=== PATIENT | female | born 1970 | race Caucasian/White ===

== ENCOUNTER 2021-07-27 09:28 | Emergency (ER) | payer OTHER ==
[2021-07-27 10:03] LABS: Appearance CLOUDY (CLEAR); Bacteria RARE /HPF (NEGATIVE); Bilirubin NEGATIVE (NEGATIVE); Blood LARGE Ery/ul (0-5); Epithelial Cells RARE /HPF (FEW); Glucose NEGATIVE (NEGATIVE); Ketones NEGATIVE (NEGATIVE); Leukocyte Esterase LARGE (NEGATIVE); Nitrite NEGATIVE (NEGATIVE); Non-Squamous Epithelial Cells RARE /HPF (FEW); Protein,Urine Dip >=500 (Negative); Specific Gravity 1.022 (1.005-1.025); Urobilinogen NEGATIVE mg/dL (0-1); WBC >100 /HPF (0-5)
[2021-07-27] MEDS ORDERED: KEFLEX 500 MG PO ONE (10:04)
[2021-07-27 10:06] LABS: RBC >101 /HPF (0-2)
[2021-07-27] MEDS ORDERED: KEFLEX 500 MG ONE (10:10)
--- NOTE | 2021-07-27 10:23 | ERPHSYRPT ---
- History of Present Illness Time Seen by Provider: 07/27/21 10:03 Source: patient Exam Limitations: no limitations Patient Subjective Stated Complaint: pt reports UTI, states she has a history, symptoms started yesterday with urgency, pain with urination, frequency and bl ush colored urine. Triage Nursing Assessment: pt is aox3, pupils perrl, afebrile, resps easy and non labored, cap refill < 3 seconds, radial pulses strong and equal, pt skin p ink warm dry. Physician History: 51 years old female with history of UTIs in the past presented in the ER with suprapubic discomfort, with increased frequency, dysuria and sense of incomplete voiding and questionable hematuria since yesterday. Patient reports symptoms similar to last time when she had a UTI. No fever or chills reported. Denies any flank pain. No nausea or vomiting. Timing/Duration: yesterday, gradual onset, worse Quality: aching Onset Location: urethral Severity of Pain-Max: moderate Severity of Pain-Current: mild Prior abdominal problems: UTI Modifying Factors: Worsens With: urinating Associated Symptoms: dysuria, nocturia, urinary frequency Allergies/Adverse Reactions: Sulfa (Sulfonamide Antibiotics) Allergy (Verified 07/27/21 09:43) Home Medications: Atorvastatin Calcium [Lipitor] 20 mg PO DAILY 07/27/21 [History] Dextroamphetamine/Amphetamine [Adderall Xr 15 mg Capsule] 15 mg PO DAILY 07/27/21 [History] Hydrochlorothiazide 25 mg [hydroDIURIL 25 MG] 25 mg PO DAILY 07/27/21 [History] Lisinopril 10 mg [Zestril 10 MG] 10 mg PO DAILY 07/27/21 [History] buPROPion HCl [Bupropion HCl Sr] 100 mg PO Q12H 07/27/21 [History] Hx Tetanus, Diphtheria Vaccination/Date Given: Yes Hx Influenza Vaccination/Date Given: No Hx Pneumococcal Vaccination/Date Given: No Travel Risk - International Travel Have you traveled outside of the country in past 3 weeks: No - Coronavirus Screening Are you exhibiting any of the following symptoms?: No Close contact with a COVID-19 positive Pt in past 14-21 Days: No - Vaccine Status Have you recieved a Covid-19 vaccination: Yes [employer]: Pfizer - Vaccination Dates Date of 2cond Vaccination (if applicable): unk Comment: booster in apr - Review of Systems Constitutional: No Symptoms Ears, Nose, & Throat: No Symptoms Respiratory: No Symptoms Cardiac: No Symptoms Abdominal/Gastrointestinal: No Symptoms Genitourinary Symptoms: Dysuria, Frequency, Hematuria, Urgency Musculoskeletal: No Symptoms Neurological: No Symptoms Psychological: No Symptoms Endocrine: No Symptoms - Past Medical History Pertinent Past Medical History: Yes Cardiac History: Hypertension Psycho-Social History: Anxiety, Attention Deficit Disorder, Depression - Past Surgical History Past Surgical History: Yes Female Surgical History: Hysterectomy, Other Other Surgical History: ulnar nerve bilat. breast reduction. rectocele - Social History Smoking Status: Never smoker Exposure to second hand smoke: No Drug Use: none Patient Lives Alone: No - Female History Hx Last Menstrual Period: hyst Hx Now: No - Nursing Vital Signs Nursing Vital Signs: Initial Vital Signs Temperature 96.7 F 07/27/21 09:30 Pulse Rate 88 07/27/21 09:30 Respiratory Rate 18 07/27/21 09:30 Blood Pressure 124/94 07/27/21 09:30 O2 Sat by Pulse Oximetry 99 07/27/21 09:30 Pain Scale Pain Intensity 4 - Physical Exam General Appearance: no apparent distress, alert Eye Exam: PERRL/EOMI Neck Exam: normal inspection, supple, full range of motion Respiratory Exam: normal breath sounds, lungs clear Cardiovascular Exam: regular rate/rhythm, normal heart sounds Gastrointestinal/Abdomen Exam: soft, normal bowel sounds, tenderness (Minimal suprapubic area with no right or left lower quadrant tenderness at all.) Back Exam: normal range of motion, No CVA tenderness Extremity Exam: normal inspection, normal range of motion Neurologic Exam: alert, oriented x 3, cooperative Skin Exam: normal color SpO2 Interpretation: normal SpO2: 99 O2 Delivery: Room Air Ordered Tests: Active Orders 24 hr Category Date Time Status CULTURE,URINE Stat Lab 07/27/21 09:48 Received UA W/RFX UR CULTURE Stat Lab 07/27/21 09:48 Completed Medication Summary Discontinued Medications Generic Name Dose Route Start Last Admin Trade Name Freq PRN Reason Stop Dose Admin Cephalexin HCl 500 mg 07/27/21 10:04 07/27/21 10:10 Cephalexin Mh500 Mg Capsule PO 07/27/21 10:05 500 mg STAT ONE Administration Cephalexin HCl Confirm 07/27/21 10:10 Cephalexin Mh500 Mg Capsule Administered 07/27/21 10:11 Dose 500 mg .ROUTE .STK-MED ONE Lab/Rad Data: Laboratory Results 07/27/21 Range/Units 09:48 Urine Color YELLOW (YELLOW) Urine Appearance CLOUDY (CLEAR) Urine pH 5.0 (5-6) Ur Specific [place] 1.022 (1.005-1.025) Urine Protein >=500 (Negative) Urine Ketones NEGATIVE (NEGATIVE) Urine Blood LARGE (0-5) [place]/ul Urine Nitrite NEGATIVE (NEGATIVE) Urine Bilirubin NEGATIVE (NEGATIVE) Urine Urobilinogen NEGATIVE (0-1) mg/dL Ur Leukocyte Esterase LARGE (NEGATIVE) Urine WBC (Auto) >100 (0-5) /HPF Urine RBC (Auto) >101 (0-2) /HPF U Epithel Cells (Auto) RARE (FEW) /HPF Urine Bacteria (Auto) RARE (NEGATIVE) /HPF U Non-Squamous Epi Cells RARE (FEW) /HPF Urine Culture Reflexed YES (NO) Urine Glucose NEGATIVE (NEGATIVE) mg/dL - Progress Progress: unchanged Air Movement: good Progress Note: 07/27/21 10:21 Has UTI and started on antibiotics. Outpatient follow-up recommended. No sign symptoms suggesting pyelonephritis, do not think needs any other work-up and is stable for discharge Counseled pt/family regarding: lab results, diagnosis, need for follow-up - Departure Departure Disposition: Home Clinical Impression: Acute lower UTI Condition: Stable Critical Care Time: No Referrals: ROEL VALADEZ NP [Primary Care Provider] - Follow up/PCP as directed Instructions: Urinary Tract Infections in Adults Additional Instructions: Drink plenty of fluids. Take Tylenol/ibuprofen as needed. Follow-up with primary care for reevaluation. Return to ER for increased urinary frequency/burning/fever chills or pain in the flanks. Prescriptions: Fluconazole [Diflucan ] 150 mg PO DAILY 1 Days #1 tablet Cephalexin Mh 500 mg [Keflex 500 mg] 500 mg PO TID #21 cap
[2021-07-27 10:35] VITALS: BP 122/87; PULSE 70
[2021-07-27 23:29] VITALS: O2SAT 99
== END 2021-07-27 10:34 | disposition home or self-care (01) ==
LOC: ED 09:28
DX: N34.2 Other urethritis (principal); R10.30 Lower abdominal pain, unspecified; R30.0 Dysuria; R35.1 Nocturia; R35.0 Frequency of micturition; I10 Essential (primary) hypertension; Z79.899 Other long term (current) drug therapy
CPT/HCPCS: 81001; 87086; 99283; A9270-GY